=== PATIENT | female | born 1970 | race Caucasian/White ===

== ENCOUNTER → 2023-08-02 | Day surgery (SDC) | payer BC ==
[~2023-08-02] MED LIST: LIDOCAINE 1% (10MG/ML) FOR IV START INTRADERMA PRN; PROPOFOL 10 MG/ML 20 ML VIAL IV ONE
[2023-08-02] MEDS: LACTATED RINGERS 1,000 ML IV SCH ×2 (13:28→14:51)
[2023-08-02 14:00] VITALS: TEMP 97.3
--- NOTE | 2023-08-02 15:08 | P.PCN ---
Date of Procedure: 08/02/23 Procedure(s) Performed: BRIEF HISTORY: Patient is a 53-year-old pleasant white female scheduled for an elective colonoscopy as a part of screening for colon cancer. PROCEDURE PERFORMED: Colonoscopy with biopsy and snare polypectomy. PREOPERATIVE DIAGNOSIS: Screening for colon cancer. IV sedation per Anesthesia. PROCEDURE: After informed consent was obtained, the patient, was brought into the endoscopy unit. IV sedation was administered by Anesthesia under continuous monitoring. Digital rectal examination was normal. Initially the Olympus CF-160 flexible video colonoscope was then inserted in the rectum, gradually advanced into the cecum without any difficulty. Careful examination was performed as the scope was gradually being withdrawn. Ileocecal valve and the appendiceal orifice were visualized and appeared normal. Prep was excellent. Mucosa of the cecum, and a 4 mm polyp that was removed by cold biopsy. Rest of the ascending colon, normal. In the transverse colon there was a 1 m broad-based polyp removed by snare polypectomy. Rest of the transverse colon, descending colon, sigmoid colon, and rectum appeared normal. Retroflexion was performed in the rectum and no lesions were seen. The patient tolerated the procedure well. IMPRESSION: 4 mm cecal polyp status post cold biopsy 1 cm transverse colon polyp status post snare polypectomy . RECOMMENDATIONS: Findings of this examination were discussed with the patient as a family. She was advised to follow with the biopsy results and if the biopsy result adenoma he can have a repeat colonoscopy in 3 years.
[2023-08-02 15:43] VITALS: BP 116/75; PULSE 84; RESP 12
== END ==
LOC: ORWHC2ENDO 12:27
PROVIDERS: ATTEND Internal Medicine Gastroenterology
DX: Z12.11 Encounter for screening for malignant neoplasm of colon (principal); K63.5 Polyp of colon; K21.9 Gastro-esophageal reflux disease without esophagitis; Z79.899 Other long term (current) drug therapy; Z91.040 Latex allergy status
CPT/HCPCS: 45380; 45385; 81025; 88305; J2704

== ENCOUNTER → 2023-12-30 | Outpatient (CLI) | payer BC ==
--- NOTE | 2023-12-31 07:57 | MM ---
Reason for Exam: Screening (asymptomatic). Last mammogram was performed 1 year(s) and 4 month(s) ago. Patient History: Menarche at age 16. First Full-Term at age 33. Late child-bearing (after 30). Patient has history of breast feeding. 11/19/2013, Benign Cyst Aspiration on the left side. Last menstrual period: 11/13/2023 Risk Values: Marina 5 year model risk: 1.3%. NCI Lifetime model risk: 11.0%. Prior Study Comparison: 08/08/2018 Bilateral MG 3D screening mammo w/cad, Unknown. 03/28/2021 Bilateral MG 3D screening mammo w/cad, Unknown. 08/21/2022 Bilateral MG 3D screening mammo w/cad, Unknown. Tissue Density: The breasts are heterogeneously dense, which may obscure small masses. Findings: Analyzed By CAD. Asymmetric density central inferior right breast anterior to middle depth is more defined. It incompletely disperses on 3-D images. This may represent superimposition shadow but further evaluation is recommended. Other areas of asymmetric density are unchanged. Overall Assessment: Incomplete: need additional imaging evaluation, BI-RAD 0 Management: Special View Mammogram of the right breast. Diagnostic Breast Ultrasound of the right breast. . [facility] will attempt to contact patient to return for supplemental views and ultrasound if indicated. Electronically signed and approved by: Nichole Sheets M.D. Radiologist
== END | disposition home or self-care (01) ==
LOC: RADMAMWWP 07:31
PROVIDERS: ATTEND Obstetrics & Gynecology
DX: Z12.31 Encounter for screening mammogram for malignant neoplasm of breast (principal)
CPT/HCPCS: 77063; 77067

== ENCOUNTER → 2024-01-03 | Outpatient (CLI) | payer BC ==
--- NOTE | 2024-01-03 08:29 | MM ---
Reason for Exam: Additional evaluation requested from abnormal screening. Last screening mammogram was performed less than 1 month ago. Patient History: Menarche at age 16. First Full-Term at age 33. Late child-bearing (after 30). Patient has history of breast feeding. 11/19/2013, Benign Cyst Aspiration on the left side. Risk Values: Marina 5 year model risk: 1.3%. NCI Lifetime model risk: 11.0%. Tissue Density: Right: The breasts are heterogeneously dense, which may obscure small masses. Findings: Analyzed By CAD. The inferior area of asymmetric density middle to anterior depth becomes less defined on the additional views and is favored to represent superimposition shadow. Ultrasound recommended. Overall Assessment: Incomplete: need additional imaging evaluation, BI-RAD 0 Management: Diagnostic Breast Ultrasound of the right breast. Electronically signed and approved by: Nichole Sheets M.D. Radiologist
--- NOTE | 2024-01-03 08:57 | USB ---
Reason for Exam: Additional evaluation requested from abnormal screening. Patient History: Menarche at age 16. First Full-Term at age 33. Late child-bearing (after 30). Patient has history of breast feeding. 11/19/2013, Benign Cyst Aspiration on the left side. Risk Values: Marina 5 year model risk: 1.3%. NCI Lifetime model risk: 11.0%. Technique: Method: Whole Breast Handheld. Prior Study Comparison: 03/28/2021 Bilateral MG 3D screening mammo w/cad, Unknown. 08/21/2022 Bilateral MG 3D screening mammo w/cad, Unknown. 12/30/2023 Bilateral MG 3D screening mammo w/cad, [facility]. Findings: The whole breast of the right breast, the axilla of the right breast and the retroareolar of the right breast were scanned. A complete US of all four quadrants of the breast , axilla, and retro-areolar region were reviewed. Dense tissues are present throughout. No solid or cystic lesion with particular attention along the inferior aspect. Some mild duct ectasia behind the nipple noted. No axillary lymphadenopathy. Overall Assessment: Probably benign, BI-RAD 3 Management: Diagnostic Mammogram of the right breast in 6 months. As a precautionary measure. A clinical breast exam by your physician is recommended on an annual basis and results should be correlated with mammographic findings. This exam should not preclude additional follow-up of suspicious palpable abnormalities. Results were given to the patient verbally at the time of exam. Electronically signed and approved by: Nichole Sheets M.D. Radiologist
== END | disposition home or self-care (01) ==
LOC: RADMAMWWP 08:03
PROVIDERS: ATTEND Obstetrics & Gynecology
DX: R92.8 Other abnormal and inconclusive findings on diagnostic imaging of breast (principal); R92.331 Mammographic heterogeneous density, right breast
CPT/HCPCS: 77061; 77065